=== PATIENT | female | born 1990 | race Caucasian/White ===

== ENCOUNTER 2022-07-09 19:40 | Observation (INO) | payer BC ==
[2022-07-09] MEDS ORDERED: LORazepam 2 MG/ML INJ IV STA (20:34)
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
--- NOTE | 2022-07-09 22:28 | CT ---
EXAMINATION TYPE: CT brain cspine wo con DATE OF EXAM: 07/09/2022 COMPARISON: None HISTORY: fall CT DLP: 1440.7 mGycm Automated exposure control for dose reduction was used. Ventricles and sulci appear normal. There is no mass effect or midline shift. No sign of intracranial hemorrhage. The calvarium is intact. No evidence of cerebral edema. Skull base is intact. There is n ormal aeration of the mastoid sinuses. The cervical vertebra have normal spacing and alignment. Posterior elements are intact no compression fracture. Facet joints are intact. Prevertebral soft tissues are intact. IMPRESSION: Negative CT scan of the brain. Negative CT scan of the cervical spine.
--- NOTE | 2022-07-09 22:29 | XR ---
EXAMINATION TYPE: XR spine complete AP and Lat DATE OF EXAM: 07/09/2022 COMPARISON: NONE HISTORY: Fall. Pain TECHNIQUE: 9 views FINDINGS: The cervical thoracic and lumbar vertebrae have fairly normal spacing and alignment. Material Combiner ior elements are intact. No compression fracture. There is no thoracic paraspinal mass. Sacroiliac tessa ints are intact. Atlantoaxial facet joint is normal. There are no cervical ribs. IMPRESSION: Negative cervical thoracic and lumbar spine exam.
[2022-07-09] MEDS ORDERED: BENZTROPINE 2 MG/2 ML AMP IV STA (23:17)
[2022-07-09] MEDS ORDERED: NALOXONE 0.4 MG/ML 1 ML VIAL IV PRN (23:47)
[2022-07-09] MEDS ORDERED: LORazepam 0.5 MG TAB PO PRN (23:47)
[2022-07-10 00:01] LABS: Basophils # (A) 0.1 k/uL (0-0.2); Basophils % (A) 1 %; Eosinophils # (A) 0.3 k/uL (0-0.7); Eosinophils % (A) 4 %; HCT 37.3 % (34.0-46.0); HGB 13.4 gm/dL (11.4-16.0); Lymphocytes # (A) 1.9 k/uL (1.0-4.8); Lymphocytes % (A) 21 %; MCH 30.7 pg (25.0-35.0); MCV 85.3 fL (80.0-100.0); Mean Platelet Volume 7.3; Monocytes # (A) 0.4 k/uL (0-1.0); Monocytes % (A) 5 %; Neutrophils # (A) 5.9 k/uL (1.3-7.7); Neutrophils % (A) 68 %; Platelet Count 202 k/uL (150-450); RBC 4.38 m/uL (3.80-5.40); RDW 12.4 % (11.5-15.5); WBC 8.7 k/uL (3.8-10.6)
[2022-07-10 00:09] LABS: African American GFR (CKD) >90 (>60 ml/min/1.73 sqM); Anion Gap 8 mmol/L; Blood Urea Nitrogen 9 mg/dL (7-17); Calcium 8.8 mg/dL (8.4-10.2); Carbon Dioxide 23 mmol/L (22-30); Chloride 107 mmol/L (98-107); Glucose 101 mg/dL (74-99); Non-African American GFR(CKD) >90 (>60 ml/min/1.73 sqM); Potassium 3.9 mmol/L (3.5-5.1); Sodium 138 mmol/L (137-145)
[2022-07-10] MEDS: SODIUM CHLORIDE 0.9% 1,000 ML IV SCH (01:28)
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
[2022-07-10] MEDS ORDERED: HYDROcodone/APAP 5-325MG 1 EACH TAB PO STA (15:58)
[2022-07-10] MEDS: ACETAMINOPHEN TAB 500 MG TAB PO PRN (16:07)
[2022-07-10] MEDS: HEPARIN SODIUM,PORCINE/PF 5,000 UNIT/0.5 ML SYRINGE SQ SCH (18:14)
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
[2022-07-10] MEDS: PRAZOSIN 1 MG CAP PO SCH (22:16)
[2022-07-10] MEDS: GABAPENTIN 300 MG CAP PO SCH (22:16)
[2022-07-10] MEDS: PROPRANOLOL 40 MG TAB PO SCH (22:17)
[2022-07-11] MEDS: SODIUM CHLORIDE 0.9% 1,000 ML IV SCH (00:40)
[2022-07-11] MEDS: HEPARIN SODIUM,PORCINE/PF 5,000 UNIT/0.5 ML SYRINGE SQ SCH ×4 (00:40→22:28)
[2022-07-11 09:40] LABS: African American GFR (CKD) 133.8 (60.0-200.0); BUN/Creat Ratio 12.71 Ratio (12.00-20.00); Blood Urea Nitrogen 8.9 mg/dL (9.0-27.0); Calcium 8.7 mg/dL (8.7-10.3); Carbon Dioxide 21.6 mmol/L (20.0-27.5); Chloride 106 mmol/L (96-109); Glucose 80 mg/dL (70-110); Non-African American GFR(CKD) 115.4 (60.0-200.0); Potassium 3.7 mmol/L (3.5-5.5); Sodium 140 mmol/L (135-145)
--- NOTE | 2022-07-11 11:01 | MR ---
EXAMINATION TYPE: MR brain wo con DATE OF EXAM: 07/11/2022 COMPARISON: CT brain July 09, 2022 HISTORY: dysarthria. Fall injury with pain. TECHNIQUE: Multiplanar, multisequence imaging of the brain and brainstem is performed without IV cont rast. FINDINGS: Diffusion weighted images demonstrate no evidence of a recent infarct or other diffusion abnormality. There is no extraaxial fluid collection or significant white matter signal abnormality. The ventricu lar system and cisternal spaces are normal in size and appearance. The brain volume is age appropria te. No suspicious intraparenchymal blood product on T2 Star weighted images. Midline structures demonstrate normal morphology. The craniocervical junction appears within normal limits. Normal vascular flow voids are present. Mucosal thickening involving ethmoid sinuses bilatera lly. Mild to moderate anterior mucosal thickening involving sphenoid sinuses bilaterally. Globes are intact bilaterally. Nasal septum remains deviated to the left of midline. IMPRESSION: Chronic paranasal sinus disease otherwise unremarkable study
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
[2022-07-11] MEDS: ONDANSETRON 4 MG/2 ML VIAL IVP PRN (12:18)
[2022-07-11] MEDS: GABAPENTIN 300 MG CAP PO SCH ×2 (13:46→20:37)
[2022-07-11] MEDS: PROPRANOLOL 40 MG TAB PO SCH ×2 (13:46→20:37)
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
[2022-07-11] MEDS: ACETAMINOPHEN TAB 500 MG TAB PO PRN (18:03)
[2022-07-11] MEDS: PRAZOSIN 1 MG CAP PO SCH (22:28)
[2022-07-12] MEDS: SODIUM CHLORIDE 0.9% 1,000 ML IV SCH (01:13)
[2022-07-12] MEDS: ONDANSETRON 4 MG/2 ML VIAL IVP PRN (01:46)
[2022-07-12] MEDS: ACETAMINOPHEN TAB 500 MG TAB PO PRN ×2 (01:46→09:32)
[2022-07-12 05:03] VITALS: RESP 16
[2022-07-12 08:34] VITALS: BP 109/56; PULSE 87; TEMP 98
[2022-07-12] MEDS: PROPRANOLOL 40 MG TAB PO SCH (09:27)
[2022-07-12] MEDS: GABAPENTIN 300 MG CAP PO SCH (09:27)
[2022-07-12] MEDS: HEPARIN SODIUM,PORCINE/PF 5,000 UNIT/0.5 ML SYRINGE SQ SCH (09:28)
[2022-07-12] MEDS ORDERED: clonazePAM 1 MG TAB PO PRN (11:37)
[2022-07-12] MEDS ORDERED: buPROPion XL 150 MG TAB.ER.24H PO SCH (11:45)
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
== END 2022-07-12 15:21 | disposition home or self-care (01) ==
LOC: EC 19:40 → 6NMEDSUR 23:49
PROVIDERS: ADMIT Hospitalist; ATTEND Hospitalist
DX: R55 Syncope and collapse (principal); R13.10 Dysphagia, unspecified; R47.81 Slurred speech; R47.1 Dysarthria and anarthria; F41.0 Panic disorder [episodic paroxysmal anxiety]; G62.9 Polyneuropathy, unspecified; F43.10 Post-traumatic stress disorder, unspecified; F10.11 Alcohol abuse, in remission; F17.210 Nicotine dependence, cigarettes, uncomplicated; Z56.0 Unemployment, unspecified; Z79.1 Long term (current) use of non-steroidal anti-inflammatories (NSAID); Z79.899 Other long term (current) drug therapy; Z88.2 Allergy status to sulfonamides; Z81.8 Family history of other mental and behavioral disorders
CPT/HCPCS: 96372 ×2; 96375 ×2; 96376; 96374; 99285; 36415; 93005; 92610; 92526; 82747; 80048 ×2; 84443; 82607; 85025; 81025; 72082; 72125; 70450; 70551; G0378 ×4; J2060; J0515; J2405 ×2; J1644 ×2